=== PATIENT | male | born 1950 | race Two or more races ===

== ENCOUNTER 2017-05-31 22:36 | Emergency (ER) | payer MEDICARE ==
[~2017-05-31] VITALS: Ht 188 cm; Wt 72.6 kg
[2017-05-31 22:59] VITALS: BP 121/78
[2017-05-31] MEDS ORDERED: IBUPROFEN 400 MG TABLET ONE (23:13)
[2017-05-31] MEDS ORDERED: IBUPROFEN 400 MG TABLET PO ONE (23:30)
== END 2017-06-01 01:03 | disposition home or self-care (01) ==
LOC: ER 22:36
DX: M54.6 Pain in thoracic spine (principal); M54.5 Low back pain; M54.2 Cervicalgia; M79.1 Myalgia; I10 Essential (primary) hypertension; M19.90 Unspecified osteoarthritis, unspecified site; E11.9 Type 2 diabetes mellitus without complications; V49.49XA Driver injured in collision with other motor vehicles in traffic accident, initial encounter; Y93.89 Activity, other specified; Y92.410 Unspecified street and highway as the place of occurrence of the external cause; Y99.8 Other external cause status
CPT/HCPCS: 72040; 72074; 72110; 99284; A4606; Z7610

== ENCOUNTER 2017-08-01 08:32 | Outpatient (CLI) | payer MEDICARE ==
[2017-08-01] MEDS ORDERED: IOHEXOL-300 100 ML VIAL IV ONE (09:08)
[2017-08-01] MEDS ORDERED: IV NS 0.9% 500 ML IV ONE (09:08)
[2017-08-01] MEDS ORDERED: CT SWABBABLE VALVE TRANS SET 1 EA INFUS.SET MC ONE (09:08)
== END 2017-08-01 23:59 | disposition home or self-care (01) ==
LOC: CT 08:32
PROVIDERS: ATTEND Family Medicine
DX: R91.1 Solitary pulmonary nodule (principal); K76.0 Fatty (change of) liver, not elsewhere classified; I70.0 Atherosclerosis of aorta; M77.8 Other enthesopathies, not elsewhere classified; R51 Headache
CPT/HCPCS: 70450; 71260; J7040; Q9967

== ENCOUNTER 2017-08-10 21:48 | Emergency (ER) | payer MEDICARE ==
[~2017-08-10] VITALS: Ht 193 cm; Wt 95.3 kg
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
[2017-08-10] MEDS ORDERED: HYDROCODONE/APAP 5/325MG 1 EACH TABLET PO ONE (23:00)
--- NOTE | 2017-08-10 23:16 | NUR ---
Patient eloped from facility. ER MD notified.
[2017-08-10 23:17] VITALS: BP 124/75
== END 2017-08-10 23:18 | disposition left against medical advice (07) ==
LOC: ER 21:50
DX: S00.83XA Contusion of other part of head, initial encounter (principal); M27.63 Post-osseointegration mechanical failure of dental implant; I10 Essential (primary) hypertension; M19.90 Unspecified osteoarthritis, unspecified site; F32.9 Major depressive disorder, single episode, unspecified; Y04.8XXA Assault by other bodily force, initial encounter; Y93.89 Activity, other specified; Y92.89 Other specified places as the place of occurrence of the external cause; Y99.8 Other external cause status
CPT/HCPCS: 70450; 70486; 99284; A4606; Z7610

== ENCOUNTER 2018-05-15 15:07 | Emergency (ER) | payer MEDICARE ==
[~2018-05-15] VITALS: Ht 162.6 cm; Wt 107.1 kg
[2018-05-15 15:35] VITALS: BP 131/88
== END 2018-05-15 16:15 | disposition home or self-care (01) ==
LOC: ER 15:11
DX: S21.212D Laceration without foreign body of left back wall of thorax without penetration into thoracic cavity, subsequent encounter (principal); I10 Essential (primary) hypertension; F32.9 Major depressive disorder, single episode, unspecified; Y08.89XD Assault by other specified means, subsequent encounter
CPT/HCPCS: 99281; A4606; Z7502

== ENCOUNTER 2021-05-12 15:57 | Inpatient (IN) | payer MEDICARE ==
[~2021-05-12] VITALS: Ht 193 cm; Wt 97.5 kg
[2021-05-12] MEDS ORDERED: IV NS 0.9% 1,000 ML BAG IV ONE (17:00)
[2021-05-12] MEDS ORDERED: PIPERACILLIN /TAZOBACTAM 3.375 G in IV D5W 50 ML IV ONE (17:00)
[2021-05-12] MEDS ORDERED: ACETAMINOPHEN ES 500 MG TABLET PO ONE (17:00)
[2021-05-12] MEDS ORDERED: VANCOMYCIN 1 GM in IV D5W 250 ML IV ONE (17:00)
--- NOTE | 2021-05-12 17:06 | NUR ---
IV LINE IS ESTABLISHED, BLOOD SPECIMEN COLLECTED AND SENT TO THE LAB. THE LINE IS SALINE LOCKED.
--- NOTE | 2021-05-12 17:10 | NUR ---
covid antigen swab done and sent to the lab
[2021-05-12] MEDS ORDERED: ACETAMINOPHEN ES 500 MG TABLET ONE (17:12)
[2021-05-12 17:21] LABS: BASOPHILS % (AUTO) 0.3 % (0.0-2.0); HEMATOCRIT 53 % (39-51); LYMPHOCYTES # (AUTO) 0.6 K/uL (0.8-4.8); LYMPHOCYTES % (AUTO) 6.9 % (20.0-44.0); MEAN CORPUSCULAR HGB CONC 34 g/dl (31.0-36.0); MEAN CORPUSCULAR VOLUME 95 fL (80-96); MONOCYTES # (AUTO) 0.3 K/uL (0.1-1.30); MONOCYTES % (AUTO) 3.5 % (2.0-12.0); NEUTROPHILS # (AUTO) 8.1 K/uL (1.8-8.9); NEUTROPHILS % (AUTO) 89.3 % (43.0-81.0); PLATELET COUNT (AUTO) 159 K/uL (150-450); RED BLOOD CELL COUNT(AUTO) 5.55 MIL/uL (4.5-6.0)
[2021-05-12 18:04] LABS: ALANINE AMINOTRANSFERASE 35 U/L (12-78); ALBUMIN 3.8 g/dL (3.4-5.0); ALKALINE PHOSPHATASE 73 U/L (46-116); ASPARTATE AMINOTRANSFERASE 56 U/L (15-37); BILIRUBIN,DIRECT 0.4 mg/dL (0.0-0.2); BILIRUBIN,TOTAL 0.9 mg/dL (0.2-1.0); CALCIUM, SERUM 8.5 mg/dL (8.5-10.1); CARBON DIOXIDE 22 mmol/L (21-32); CHLORIDE 99 mmol/L (98-107); CREATININE 2.2 mg/dL (0.6-1.3); GLUCOSE 121 mg/dL (74-106); POTASSIUM 3.9 mmol/L (3.5-5.1); SODIUM SERUM 135 mmol/L (136-145); TOTAL PROTEIN, SERUM 8.9 g/dL (6.4-8.2); UREA NITROGEN, BLOOD 21 mg/dL (7-18)
[2021-05-12 18:48] LABS: BAND % (MANUAL) 2 % (0.0-5.0); LYMPHOCYTES % (MANUAL) 7 % (16-48); NEUTROPHILS % (MANUAL) 90 (42-76)
[2021-05-12 18:49] LABS: MONOCYTES % (MANUAL) 1 % (0-11.0)
[2021-05-12] MEDS ORDERED: IV NS 0.9% 1,000 ML IV PRN (19:00)
[2021-05-12] MEDS ORDERED: hydrALAZINE HCL IV 20 MG VIAL IV PRN (19:00)
[2021-05-12] MEDS ORDERED: MORPHINE SULFATE INJ 2 MG/ML DISP.SYRIN IV PRN (19:00)
--- NOTE | 2021-05-12 19:06 | NUR ---
report given to nurse Funes for herve
--- NOTE | 2021-05-12 19:08 | NUR ---
lab called, patient is covid positive.
[2021-05-12] MEDS: methylPREDNISolone SOD SUCC 125 MG/2ML VIAL IV SCH (19:45)
[2021-05-12] MEDS ORDERED: AZITHROMYCIN 500 MG VIAL ONE (19:45)
[2021-05-12] MEDS ORDERED: methylPREDNISolone SOD SUCC 125 MG/2ML VIAL ONE (19:45)
[2021-05-12] MEDS: AZITHROMYCIN 500 MG in IV D5W 250 ML IV SCH (20:00)
[2021-05-12] MEDS: HEPARIN SODIUM, PORCINE 5000 UNITS/1 ML VIAL SQ SCH (21:00)
[2021-05-12] MEDS ORDERED: HEPARIN SODIUM, PORCINE 5000 UNITS/1 ML VIAL ONE (21:05)
--- NOTE | 2021-05-12 21:14 | NUR ---
RM 209
--- NOTE | 2021-05-12 21:35 | NUR ---
RN notes Received report from ER nurse ELBA Funes.
--- NOTE | 2021-05-12 21:35 | NUR ---
gave report to darci Figueroa for herve
--- NOTE | 2021-05-12 22:15 | NUR ---
scenic artist notes Received Pt from ER nurse, Olena ARREOLA. Pt arrived at the unit with a gurney and ACLS protocol. Pt is alert and orientedX4. Pt is on 3 L NC with O2 sat is 96%. No SOB. No S/S of distress noted. IV site at LAC# 18 is clean, intact and infusing well azithromycin. tele monitor showed SR with BBB hr at 85. Reorient Pt to the room and the use of call light. Pt verbalized understanding. Skin assessment is done and performed. Pt's belonging is checked by KADI Birch. Safety precautions is maintained. bed at low position, brakes locked, side rails upX2, hob elevated, urinal at the bedside and call light is within reach. Will continue to monitor.
[2021-05-12 22:30] VITALS: BP 123/77
[2021-05-12 22:40] LABS: BILIRUBIN,URINE NEGATIVE (NEGATIVE); COLOR,URINE DARK YELLOW (YELLOW); LEUKOCYTE ESTERASE ,URINE NEGATIVE (NEGATIVE); NITRITE, URINE NEGATIVE (NEGATIVE); PROTEIN,URINE 100 mg/dl (NEGATIVE); UGLUCOSE NEGATIVE (NEGATIVE); UROBILINOGEN,URINE 0.2 EU/dL (0.2)
[2021-05-13] VITALS: BP 112/72
[2021-05-13] MEDS: methylPREDNISolone SOD SUCC 125 MG/2ML VIAL IV SCH ×3 (02:24→18:27)
[2021-05-13 04:00] VITALS: BP 107/73
--- NOTE | 2021-05-13 06:45 | NUR ---
RN closing notes Pt is resting in bed comfortably. Pt is alert and orientedX4. Pt is on 3 L NC. No SOB. No S/S of distress noted. IV site at LAC# 18 is clean, intact and infusing well NS@ 75 ml/hr. tele monitor showed SR with BBB hr at 79. Kept Pt clean, dry and comfortable. Safety precautions is maintained. bed at low position, brakes locked, side rails upX2, hob elevated, urinal at the bedside and call light is within reach. Will endorse to am nurse for ARMANDO.
[2021-05-13 07:30] LABS: BASOPHILS % (AUTO) 0.1 % (0.0-2.0); HEMATOCRIT 47 % (39-51); HEMOGLOBIN 16.1 g/dL (13.5-17.5); LYMPHOCYTES # (AUTO) 0.5 K/uL (0.8-4.8); LYMPHOCYTES % (AUTO) 8.1 % (20.0-44.0); MEAN CORPUSCULAR HGB CONC 34 g/dl (31.0-36.0); MEAN CORPUSCULAR VOLUME 95 fL (80-96); MONOCYTES # (AUTO) 0.2 K/uL (0.1-1.30); MONOCYTES % (AUTO) 2.4 % (2.0-12.0); NEUTROPHILS # (AUTO) 5.9 K/uL (1.8-8.9); NEUTROPHILS % (AUTO) 89.4 % (43.0-81.0); PLATELET COUNT (AUTO) 136 K/uL (150-450); RED BLOOD CELL COUNT(AUTO) 4.95 MIL/uL (4.5-6.0); WHITE BLOOD COUNT (AUTO) 6.6 K/uL (4.3-11.0)
--- NOTE | 2021-05-13 07:30 | NUR ---
SIDE TRIMMER NOTES PT IN BED, AWAKE, ALERT AND ORIENTED, DENIES PAIN, NOT IN DISTRESS, CALL LIGHT WITHIN REACH, NEEDS ATTENDED.
[2021-05-13 07:50] LABS: ALBUMIN 2.9 g/dL (3.4-5.0); BILIRUBIN,TOTAL 0.6 mg/dL (0.2-1.0); CALCIUM, SERUM 7.8 mg/dL (8.5-10.1); CREATININE 1.4 mg/dL (0.6-1.3); MAGNESIUM 2.8 mg/dL (1.8-2.4); POTASSIUM 3.9 mmol/L (3.5-5.1); TOTAL PROTEIN, SERUM 7.4 g/dL (6.4-8.2)
[2021-05-13 08:00] VITALS: BP 118/74
[2021-05-13] MEDS: CEFTRIAXONE 1 G in IV D5W 50 ML IV SCH (08:17)
[2021-05-13] MEDS ORDERED: K PHOS NEUTRAL 250 MG TABLET PO ONE (08:30)
[2021-05-13] MEDS: HEPARIN SODIUM, PORCINE 5000 UNITS/1 ML VIAL SQ SCH ×2 (08:44→21:36)
--- NOTE | 2021-05-13 10:42 | NUR ---
APPLICATION SUPPORT ENGINEER NOTES PT SEEN AND EXAMINED BY DR. ROSA, PLAN OF CARE DISCUSSED WITH PT, VERBALIZED UNDERSTANDING.
[2021-05-13 16:00] VITALS: BP 123/86
--- NOTE | 2021-05-13 16:17 | NUR ---
"SS consult: SS consult requested for homelessness. Pt. is a 71-year-old male who was brought in due to gradual onset of dyspnea per EMR. Upon SS consult, pt. was alert and oriented x4. Pt. presents with a dysphoric mood and heavy breathing. SW conducted the interview via phone due to pt.s COVID diagnosis. SW explored pt.s social support. Pt. stated that he is to Nely Concepcion ([phone]). Pt. stated he wanted his jvahzv-in-qlz Jayde Meléndez ([phone]) to be his advocate. SW left advance directive paperwork in pt.s chart and educated pt. on process. Pt. expressed understanding. SW explored pt.s living situation. Pt. stated he lives at [[address] [place] [address]] where a survey field technician allows him to stay in his van. Pt. stated he has been homeless for twelve years. SW offered pt. homeless resources and pt. accepted them. SW placed homeless resources in pt.s chart. SW explored whether pt. is ambulatory. Pt. stated he is not currently able to walk due to COVID-19 diagnosis. Pt. stated that prior to hospitalization he was able to walk independently. SW explored pt.s financial situation. Pt. stated he receives 1,985 dollars of SSI each month. SW explored pt.s substance use history. Pt. denied alcohol/substance use. SW explored pt.s psychiatric history. Pt. denied psychiatric diagnosis. Pt. denied visual/auditory hallucinations. Pt. denied suicidal/homicidal ideation. Plan: Upon discharge, pt. stated he wanted to return to live in his van at [address] [place] [address]. Pt. will sign homeless waiver (placed in the chart) UPON DISCHARGE. Year-round shelters: [facility] [address] [place] [address] ; [facility] [address] [place] [address]; [facility] [id number] [facility] [address] Winter Shelters: SPA 2 | [facility] Lolavider: [facility] [place] Address: Confidential (call for location ) Population Served: Coed # of Beds: 57 SPA 4 | [facility] Provider: [facility] Address: [address] [facility], [address] # of Beds: 49 Population Served: Coed SPA 6 | [facility] Provider: [facility] Last Address: [address] [facility], [address] # of Beds: 49 Population Served: Coed [facility] Provider: Rodolfo [facility] N[facility] Address: [address] [facility] [address] # of Beds: 20 Population Served: Women RODRI Facility Provider: Home at Last Address: [address] [facility] [address] # of Beds: 30 Population Served: Women SPA 8 | [facility] Provider: Quan kingston Ifeoma Address: [address] [facility] [address] # of Beds: 65 Population Served: Coed Hygiene: [facility]: [address] [facility] ; [facility] [address] [facility] ; [facility] [address] [facility] . Food Resources: [facility] [facility] at [facility]- [address] [facility] [facility]; Meet Each Need with Dignity ([facility]) [address] [facility]; [facility] [address] [facility]; [facility] 8573 [facility]. Mental Health resources provided: [facility] [address] [place] [address] ; [facility] [address] [facility] [address], [place] [address] ; Moriah Escobedo [facility] [address] [place] [address] ; [facility] [address] [place], [place] [phone] Healthcare Clinics: [facility] [address] [facility], [address] [place]. [place] ; [facility] [address] [facility] [address] [place] [address]; [facility] [address] [place] [address] [phone]) [phone] Counseling--Outpatient [facility] [address] [facility], [place] [address] (Specializes in in-depth psychotherapy for emotional distress: anxiety, depression, interpersonal conflicts, life transitions, childhood abuse) [facility] [address] [place] [address] (Assist with solving problem marital difficulties, separation & divorce, aging parents, & grief, chronic & terminal illness) [facility] [address] [place] [address] (Deal with loss & grief, anxiety, marital difficulties) Homebound/Mental Health Services [address] [address] [facility], [address] [place] [address] (Provide in-home mental services to people who are incapable of leaving their homes) [facility] Needs of the Elderly Senior Service/Resource Center [address] [place] [address] [facility] [address] [facility] [place] [address] PSYCHIATRIC OUTPATIENT SERVICES [facility] Partial Hospitalization and Intensive Outpatient Program (Managed Care and [place] Only)[address] [facility]. [facility] [phone] [facility] Partial Hospitalization and Outpatient [id number] [place], [place] [phone] TITO AZALIA [facility] [place] [address] [facility]. [address] [place], [place] [phone] [facility] Partial Hospitalization and Outpatient [id number] Lucy Vale, [phone] Substance Abuse resources provided included: [facility] Substance Abuse Self-Helpline ([facility]) ; [facility] [address] [facility]. [place] [address] ; [facility] [place] [address] [facility] [address] ; [facility] Rehabilitation Program [address] [facility] [place] [phone] ; [facility] [address] [facility] [phone] ; [facility] [address] [facility] [address] ; [facility] 909 [facility] [phone] ; [facility] Substance Abuse Helpline([facility])-[facility] ; [facility] ; [facility]; [facility] [place]; [facility] [place]; [facility] [place]; [facility] [place]; [place]; [facility] [place]; [facility] [place]; Alcoholics Anonymous -SFV; Qu-Vbmi-Haahbdr ; Marijuana Anonymous -[facility]; Narcotics Anonymous [email or web address];"
[2021-05-13 17:31] LABS: CREATININE, URINE 222.2 MG/DL (30.0-125.0); URINE TOTAL PROTEIN 115.8 mg/dL (0-11.9)
[2021-05-13 17:36] LABS: BILIRUBIN,URINE NEGATIVE (NEGATIVE); COLOR,URINE YELLOW (YELLOW); LEUKOCYTE ESTERASE ,URINE NEGATIVE (NEGATIVE); NITRITE, URINE NEGATIVE (NEGATIVE); PROTEIN,URINE 30 mg/dl (NEGATIVE); UGLUCOSE NEGATIVE (NEGATIVE); UROBILINOGEN,URINE 0.2 EU/dL (0.2)
[2021-05-13 17:56] LABS: BACTERIA,URINE FEW /HPF (None Seen); MUCUS,URINE MOD /LPF (None Seen); SQUAMOUS EPITHELIAL CELL,UR FEW /HPF (None Seen); WBC,URINE 0-2 /HPF (0-3)
--- NOTE | 2021-05-13 18:26 | NUR ---
OPERATIONAL RISK CONSULTANT NOTES PT IN BED, WATCHING TV, CALL LIGHT WITHIN REACH, ABLE TO AMBULATE TO THE BATHROOM WITH STEADY GAIT, PM CARE PROVIDED, IV FLUIDS INFUSING WELL, ALL NEEDS ATTENDED.
[2021-05-13 19:02] LABS: EOSINOPHIL,URINE None Seen
[2021-05-13 20:00] VITALS: BP 121/75
[2021-05-13] MEDS: AZITHROMYCIN 500 MG in IV D5W 250 ML IV SCH (21:36)
[2021-05-13] MEDS: ACETAMINOPHEN 325 MG TABLET PO PRN (22:55)
[2021-05-14] VITALS: BP 109/69
[2021-05-14 04:00] VITALS: BP 121/71
[2021-05-14] MEDS: methylPREDNISolone SOD SUCC 125 MG/2ML VIAL IV SCH ×3 (04:08→19:03)
[2021-05-14] MEDS: ACETAMINOPHEN 325 MG TABLET PO PRN ×3 (05:43→21:00)
[2021-05-14 07:05] LABS: ALBUMIN 2.9 g/dL (3.4-5.0); BILIRUBIN,TOTAL 0.6 mg/dL (0.2-1.0); CALCIUM, SERUM 7.5 mg/dL (8.5-10.1); CREATININE 1.5 mg/dL (0.6-1.3); MAGNESIUM 2.6 mg/dL (1.8-2.4); PHOSPHORUS 1.7 mg/dL (2.5-4.9); POTASSIUM 3.5 mmol/L (3.5-5.1); TOTAL PROTEIN, SERUM 7.6 g/dL (6.4-8.2)
--- NOTE | 2021-05-14 07:20 | NUR ---
FAN RUNNER OPENING NOTES RECEIVED PATIENT IN BED, AWAKE IN BED WITH NO SIGNS OF DISTRESS. PATIENT ON OXYGEN AT 3LPM VIA NASAL CANNULA, WITH EQUAL AND UNLABORED BREATHING. PATIENT ON TELE MONITOR WITH CURRENT READING OF SR 80'S. IV ACCESS AT R HAND G22 WITH NS RUNNING AT 75ML/HR. SAFETY PRECAUTIONS IN PLACE; BED IN LOW POSITION AND LOCKED, RAILS UP X2, RONNIE LIGHT WITHIN REACH. WILL CONTINUE TO MONITOR PATIENT.
[2021-05-14 07:50] LABS: BASOPHILS % (AUTO) 0.1 % (0.0-2.0); HEMATOCRIT 46 % (39-51); HEMOGLOBIN 15.7 g/dL (13.5-17.5); LYMPHOCYTES # (AUTO) 0.6 K/uL (0.8-4.8); LYMPHOCYTES % (AUTO) 3.1 % (20.0-44.0); MEAN CORPUSCULAR HGB CONC 34 g/dl (31.0-36.0); MEAN CORPUSCULAR VOLUME 95 fL (80-96); MONOCYTES # (AUTO) 0.4 K/uL (0.1-1.30); NEUTROPHILS # (AUTO) 16.6 K/uL (1.8-8.9); NEUTROPHILS % (AUTO) 94.8 % (43.0-81.0); PLATELET COUNT (AUTO) 196 K/uL (150-450); RED BLOOD CELL COUNT(AUTO) 4.89 MIL/uL (4.5-6.0); WHITE BLOOD COUNT (AUTO) 17.5 K/uL (4.3-11.0)
[2021-05-14] MEDS: CEFTRIAXONE 1 G in IV D5W 50 ML IV SCH (08:50)
[2021-05-14] MEDS: HEPARIN SODIUM, PORCINE 5000 UNITS/1 ML VIAL SQ SCH ×2 (08:51→21:00)
--- NOTE | 2021-05-14 09:10 | NUR ---
INGREDIENT SPECIALIST NOTE PATIENT COMPLAINED THAT HIS BREAKFAST IS TOO COLD. i ASKED HIM IF HE WANTS ME TO HEAT IT FOR HIM. HE SAID NO. IT'S NOT GOOD FOR HIS PNEUMONIA. I WROTE DOWN THE NUMBER FOR DIETARY AND SHOWED AND DIALLED THE DIETARY NUMBER FOR HIM. PATIENT ORDERED SOME SNACKS AND WAS DELIVERED TO HIS ROOM. PATIENT APPEARS TO BE SATISFIED. HE WAS ALSO ASKING ABOUT HIS CAR PARKED IN THE [facility] PARK[facility] 2 DAYS AGO IF IT WAS TOWED. PATIENT GOT A CHANCE TO SPEAK WITH THE GUARD TO CONFIRM THE CAR IS STILL THERE. WILL CONTINUE TO MONITOR PATIENT.
[2021-05-14] MEDS ORDERED: K PHOS NEUTRAL 250 MG TABLET PO ONE (10:00)
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
--- NOTE | 2021-05-14 18:00 | NUR ---
CHURCH WARDEN NOTE PATIENT COMPLAINING THAT TEMPERATURE HIS ROOM WAS FREEZING AND THAT HE DOESN'T NEED ANOTHER DAMN BLANKET. HE SAID THAT THE FOOD IS NOT EVEN SUITABLE FOR DOGS TO EAT. I HAVE OFFERED HIM TO CALL THE DIETARY TO ASK FOR REPLACEMENT/ ALTERNATIVE MEAL BUT HE REFUSED TO. HE SAID THAT HE HEARS PEOPLE LAUGHING AND THAT THIS IS NOT A NIGHT CLUB, HE MUST HAVE MISTAKEN THE TIME I WAS TALKING TO THE ACCOUNT SUPPORT ANALYST AND THE SECURITY AND THANKING THEM FOR TURNING THE TEMPERATURE UP IN THE ROOM. PATIENT REFUSED TO HAVE THE DOOR CLOSED AND ADDED THAT HE HAS PNEUMONIA AND IT IS NOT MAKING HIM WELL. WHEN ASKED HOW I CAN HELP, HE JUST SAID TO NOT MAKE ANY NOISE. PATIENT REFUSED TO LISTEN TO ANYTHING ELSE AND WAS VERY DISMISSIVE. PROVIDED WITH CALM AND QUIET ENVIRONMENT.
--- NOTE | 2021-05-14 19:00 | NUR ---
GENETIC SCIENTIST CLOSING NOTES PATIENT IN BED, AWAKE IN BED WITH NO SIGNS OF DISTRESS. PATIENT ON OXYGEN AT 3LPM VIA NASAL CANNULA, WITH EQUAL AND UNLABORED BREATHING. PATIENT ON TELE MONITOR WITH CURRENT READING OF SR 80'S. IV ACCESS AT R HAND G22 WITH NS RUNNING AT 75ML/HR. PATIENT WAS VERY DEMANDING. SAYING THAT HE WANTS MULTIVITAMINS AND HE SAID HE ASKED THE MD BUT WAS UPSET WHEN I TOLD HIM THAT THERE WAS NO ORDER. SAFETY PRECAUTIONS IN PLACE; BED IN LOW POSITION AND LOCKED, RAILS UP X2, RONNIE LIGHT WITHIN REACH. WILL ENDORSE FOR CONTINUITY OF CARE.
--- NOTE | 2021-05-14 19:56 | NUR ---
MS2 RN OPENING NOTE PATIENT RECEIVED AWAKE IN BED. A/OX4. NO S/S OF DISTRESS. RH 22 PATENT AND INTACT. SAFETY MEASURES IN PLACE: BED AT LOWEST POSITION, RAILS UP X2, CALL IRVIN WITHIN REACH. WILL CONTINUE TO MONITOR PATIENT. RIGHT AT START OF SHIFT PATIENT WAS YELLING AT ALL STAFF, CURSING, AND REFUSING TO LET THE COMBINING MACHINE OPERATOR TAKE HIS VITALS. ALL REQUESTS AND DEMANDS WERE ATTEMPTED TO BE MET, BUT PATIENT CANNOT BE PLEASED. HE STATES, "NO ONE IS HELPING ME" EVEN WITH STAFF STANDING BY ATTEMPTING TO AID HIM. HE CURSES AT ALL STAFF BEING DEMEANING AND BELITTLING. WILL CONTINUE TO MONITOR PATIENT.
[2021-05-14] MEDS: AZITHROMYCIN 500 MG in IV D5W 250 ML IV SCH (20:59)
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
[2021-05-15 10:07] LABS: *SPE A/G RATIO 0.7 (0.7-1.7); *SPE ALPHA-1-GLOBULIN 0.4 g/dL (0.0-0.4); *SPE ALPHA-2-GLOBULIN 1.2 g/dL (0.4-1.0); *SPE BETA GLOBULIN 1.1 g/dL (0.7-1.3); *SPE M-SPIKE Not Observed g/dL (Not Observed)
== END 2021-05-15 01:15 | disposition left against medical advice (07) | DRG 177 ==
LOC: ER 16:01 → TRANSITION 19:39 → TELE2 21:17
PROVIDERS: ADMIT Internal Medicine; ATTEND Internal Medicine
DX: U07.1 COVID-19 (principal); N17.0 Acute kidney failure with tubular necrosis; J12.82 Pneumonia due to coronavirus disease 2019; J96.01 Acute respiratory failure with hypoxia; E86.0 Dehydration; D69.6 Thrombocytopenia, unspecified; I10 Essential (primary) hypertension; R74.01 Elevation of levels of liver transaminase levels
CPT/HCPCS: 36415; 71045-TC; 80048-TC; 80053-TC; 80076-TC; 81001; 82550-TC; 82570-TC; 83605-TC; 83735-TC; 83970; 84100-TC; 84155; 84155-TC; 84165; 84300-TC; 84484-TC; 85025-TC; 85730-TC; 87040-TC; 87081-TC; 87086-TC; C9803; G0378; J0456; J0696; J1644; J2270; J2543; J2930; J3370; J7030; J7060